=== PATIENT | male | born 1975 | race Caucasian/White ===

== ENCOUNTER 2017-08-11 08:29 | Emergency (ER) | payer BC, OTHER ==
[2017-08-11 09:17] VITALS: BP 126/88
--- NOTE | 2017-08-11 09:30 | UC ---
Throat Pain/Nasal Heath HPI - HPI Summary HPI Summary: Per facetor: "for about one week , sinus congestion, headache.Chills for two days, none recent. Cough , produtive at times. denies body aches. no nausea or vomiting. States he is prone to sinus infections." Has allergy to PCN and sulfa. Always uses zpack to treat with good results w/o any problems in past with it. Doesn't like steroid nasal spray or saline lavage. - History of Current Complaint Chief Complaint: UCRespiratory Stated Complaint: SINUSES Time Seen by Provider: 08/11/17 09:23 Pain Intensity: 0 - Allergies/Home Medications Allergies/Adverse Reactions: Allergies Allergy/AdvReac Type Severity Reaction Status Date / Time MS Penicillins [PCN] Allergy Unknown Verified 08/11/17 09:06 Reaction Details MS Sulfa Antibiotics Allergy Rash Verified 08/11/17 09:06 [Sulfa Antibiotics] Home Medications: Home Medications Ibuprofen TAB* [Advil TAB*] 400 mg PO Q6H PRN 08/11/17 [History Confirmed ] PMH/Surg Hx/FS Hx/Imm Hx Previously Healthy: Yes - Surgical History Surgical History: Yes Surgery Procedure, Year, and Place: appy - Family History Known Family History: Positive: Respiratory Disease - no asthma - Social History Alcohol Use: Daily Alcohol Amount: 1-2 a night Substance Use Type: None Smoking Status (MU): Never Smoked Tobacco Review of Systems Constitutional: Negative Skin: Negative Eyes: Negative ENT: Sore Throat, Sinus Congestion, Sinus Pain/Tenderness Respiratory: Cough, Other - no wheezing Cardiovascular: Negative Gastrointestinal: Negative Genitourinary: Negative Motor: Negative Neurovascular: Negative Musculoskeletal: Negative Neurological: Negative Psychological: Negative Is Patient Immunocompromised?: No All Other Systems Reviewed And Are Negative: Yes Physical Exam Triage Information Reviewed: Yes Appearance: No Pain Distress, Well-Nourished - very pleasant Vital Signs: Initial Vital Signs Temp 97.3 F 08/11/17 09:07 Pulse 68 08/11/17 09:07 Resp 16 08/11/17 09:07 BP 126/88 08/11/17 09:07 Pulse Ox 98 08/11/17 09:07 Vital Signs Reviewed: Yes Eye Exam: Normal ENT: Positive: Pharyngeal erythema - no exudate, Nasal congestion, TMs normal, Sinus tenderness Dental Exam: Normal Neck exam: Normal Neck: Positive: Supple, Nontender, No Lymphadenopathy Respiratory: Positive: Lungs clear, Normal breath sounds, No respiratory distress, No accessory muscle use. Negative: Crackles, Rhonchi, Stridor, Wheezing Cardiovascular Exam: Normal Cardiovascular: Positive: RRR, No Murmur, Pulses Normal Abdomen Description: Positive: Nontender, Soft Musculoskeletal Exam: Normal Neurological Exam: Normal Psychological Exam: Normal Skin Exam: Normal Throat Pain/Nasal Course/Dx - Differential Dx/Diagnosis Differential Diagnosis/HQI/PQRI: Pharyngitis, Sinusitis, URI Provider Diagnoses: sinusitis Discharge - Discharge Plan Condition: Stable Disposition: HOME Prescriptions: Azithromyxin AMOS (NF) [Z-Amos (Zithromax) 250 mg tabs #6] 250 mg PO .ZPAK INSTRUCTIONS #6 tab Patient Education Materials: Sinusitis (ED) Referrals: Arlene Esposito MD [Primary Care Provider] - If Needed Additional Instructions: Make sure to take a probiotic daily while on antibiotics to help prevent a potential complication of antibiotic use called c diff. Some well known brands that can be found OTC are [email or web address], [email or web address] and Eyefreight. Make sure to complete the entire prescription unless advised otherwise by your health care provider.
== END 2017-08-11 09:50 | disposition home or self-care (01) ==
LOC: UCCORT 08:29
DX: J32.9 Chronic sinusitis, unspecified (principal)
CPT/HCPCS: 99212; G0463

== ENCOUNTER 2017-10-29 15:25 | Emergency (ER) | payer OTHER ==
[2017-10-29 15:46] VITALS: BP 149/91
--- NOTE | 2017-10-29 16:14 | ED ---
Respiratory - HPI Summary HPI Summary: 42 yr old male with the complaint of URI symptoms, coughing, post nasal drip, throat irritation for about a week. He has had persistent post nasal drip with coughing worse at night due to post nasal drip. He has allergies to penicillins. - History of Current Complaint Chief Complaint: UCRespiratory Stated Complaint: COUGH Time Seen by Provider: 10/29/17 15:56 Pain Intensity: 5 - Allergy/Home Medications Allergies/Adverse Reactions: Allergies Allergy/AdvReac Type Severity Reaction Status Date / Time Penicillins Allergy Unknown Verified 10/29/17 15:41 Reaction Details Sulfa (Sulfonamide Allergy Rash Verified 10/29/17 15:41 Antibiotics) PMH/Surg Hx/FS Hx/Imm Hx Endocrine/Hematology History: Denies: Hx Diabetes, Hx Thyroid Disease Cardiovascular History: Denies: Hx Hypertension Respiratory History: Denies: Hx Asthma, Hx Chronic Obstructive Pulmonary Disease (COPD) GI History: Denies: Hx Ulcer - Surgical History Surgery Procedure, Year, and Place: appy Infectious Disease History: No Infectious Disease History: Denies: Hx Clostridium Difficile, Hx Hepatitis, Hx Human Immunodeficiency Virus (HIV), Hx of Known/Suspected MRSA, Hx Shingles, Hx Tuberculosis, Hx Known/ Suspected VRE, Hx Known/Suspected VRSA, History Other Infectious Disease, Traveled Outside the [place] in Last 30 Days - Family History Known Family History: Positive: None, Respiratory Disease - no asthma - Social History Occupation: Employed Full-time Alcohol Use: Occasionally Alcohol Amount: 1-2 a night Substance Use Type: Reports: None Smoking Status (MU): Never Smoked Tobacco Review of Systems Constitutional: Negative Positive: Nasal Discharge Positive: Cough All Other Systems Reviewed And Are Negative: Yes Physical Exam Triage Information Reviewed: Yes Vital Signs On Initial Exam: Initial Vitals Temp Pulse Resp BP Pulse Ox 98.3 F 96 17 149/91 96 10/29/17 15:42 10/29/17 15:42 10/29/17 15:42 10/29/17 15:42 10/29/17 15:42 Vital Signs Reviewed: Yes Appearance: Positive: Well-Appearing, No Pain Distress Skin: Positive: Warm, Skin Color Reflects Adequate Perfusion Eyes: Positive: EOMI ENT: Positive: Pharyngeal erythema, Nasal congestion, TMs normal, Sinus tenderness Neck: Positive: Supple, Nontender Respiratory/Lung Sounds: Positive: Clear to Auscultation, Breath Sounds Present Cardiovascular: Positive: RRR. Negative: Murmur Abdomen Description: Positive: Nontender Musculoskeletal: Positive: Strength/ROM Intact Neurological: Positive: Sensory/Motor Intact, Alert, Oriented to Person Place, Time, CN Intact II-III, Normal Gait, Speech Normal Psychiatric: Positive: Normal - Shahnaz Coma Scale Best Eye Response: 4 - Spontaneous Best Motor Response: 6 - Obeys Commands Best Verbal Response: 5 - Oriented Coma Scale Total: 15 Diagnostics - Vital Signs Vital Signs Temp Pulse Resp BP Pulse Ox 10/29/17 15:42 98.3 F 96 17 149/91 96 - Laboratory Lab Statement: Any lab studies that have been ordered have been reviewed, and results considered in the medical decision making process. Disposition - Course Course Of Treatment: 42 yr old with elevated BP. DC sudafed and FU with PMD for recheck. Z pack for sinusitis as he isallergic to penicillins. - Diagnoses Provider Diagnoses: Hypertension, Sinusitis Discharge - Sign-Out/Discharge Documenting (check all that apply): Discharge/Admit/Transfer - Discharge Plan Condition: Good Disposition: HOME Prescriptions: Azithromycin TAB* [Zithromax TAB (Z-AMOS) 250 mg #6 tabs] 2 tab PO .TODAY, THEN 1 DAILY #1 amos Patient Education Materials: Sinusitis (ED), Hypertension (ED) Referrals: Arlene Esposito MD [Primary Care Provider] - 2 Days Additional Instructions: Do not use sudafed as it can contribute to blood pressure elevation. follow up for a blood pressure recheck with your doctor. - Billing Disposition and Condition Condition: GOOD Disposition: HOME
== END 2017-10-29 16:19 | disposition home or self-care (01) ==
LOC: UCCORT 15:25
DX: I10 Essential (primary) hypertension (principal); J32.9 Chronic sinusitis, unspecified; Z88.0 Allergy status to penicillin; Z88.2 Allergy status to sulfonamides; E11.9 Type 2 diabetes mellitus without complications
CPT/HCPCS: 99212; G0463